=== PATIENT | female | born 1960 | race Caucasian/White ===

== ENCOUNTER 2021-10-08 09:00 | Observation (INO) ==
[2021-10-08 10:03] LABS: Basophils % 0.4 % (0.0-0.8); Eosinophils # 0.1 10*3/uL (0.0-0.87); Eosinophils % 0.7 % (0.00-10.9); Hemoglobin 13.4 GM/DL (12.0-16.0); Immature Granulocytes % 0.3 %; Immature Granulocytes Absolute 0.03 #; Lymphocytes # 1.5 10*3/uL (1.4-4.0); Lymphocytes % 16.6 % (21.3-54.2); Mean Corpuscular HGB Conc 31.9 GM/DL (32-36); Mean Corpuscular Volume 82.7 FL (87-102); Mean Platelet Volume 10.1 FL (9.6-12.0); Monocytes # 0.6 10*3/uL (0.11-0.8); Monocytes % 6.3 % (1.7-12.7); Neutrophils % 75.7 % (38.7-73.9); Platelet Count 284 T/CUMM (130-400); Red Blood Count 5.08 MC/CUMM (3.8-5.5); Red Cell Distribution Width 13.4 % (9.3-17.3)
[2021-10-08 10:13] LABS: PT Patient Result 10.8 SECS (10.5-12.0); Partial Thromboplastin Time 28.6 SECS (23.7-32.9)
[2021-10-08 10:26] LABS: Bilirubin,Total 0.7 MG/DL (0.20-1.00); Calcium 9.3 MG/DL (8.5-10.1); Osmolality,Calculated 292.6 MOS/KG (273-304); Potassium 3.5 MMOL/L (3.5-5.1); Total Protein 7.5 G/DL (6.4-8.2)
[2021-10-08] MEDS ORDERED: hydrALAZINE 20 MG/1 ML VIAL IV STA (10:53)
[2021-10-08] MEDS ORDERED: KETOROLAC 30 MG/1 ML VIAL ONE (12:26)
[2021-10-08] MEDS ORDERED: PROMETHAZINE 25 MG TABLET ONE (12:26)
[2021-10-08] MEDS ORDERED: KETOROLAC 30 MG/1 ML VIAL IV STA (12:28)
[2021-10-08] MEDS ORDERED: PROMETHAZINE 25 MG TABLET PO STA (12:28)
[2021-10-08] MEDS ORDERED: ONDANSETRON 4 MG/2 ML VIAL IV PRN (17:46)
[2021-10-08] MEDS ORDERED: ACETAMINOPHEN 325 MG TABLET PO PRN (17:46)
[2021-10-08] MEDS ORDERED: MORPHINE 2 MG/1 ML SYRINGE IV PRN (17:46)
[2021-10-08] MEDS ORDERED: ZALEPLON 5 MG CAPSULE PO PRN (18:29)
[2021-10-08] MEDS ORDERED: hydrALAZINE 20 MG/1 ML VIAL IV PRN (19:24)
[2021-10-08] MEDS ORDERED: ATORVASTATIN 40 MG TABLET PO SCH (21:00)
[2021-10-08] MEDS: DOCUSATE SODIUM 100 MG CAPSULE PO SCH (21:40)
[2021-10-09 01:21] LABS: Basophils % 0.3 % (0.0-0.8); Eosinophils # 0.1 10*3/uL (0.0-0.87); Eosinophils % 0.9 % (0.00-10.9); Hematocrit 37.4 VOL% (35.7-47.0); Hemoglobin 11.9 GM/DL (12.0-16.0); Immature Granulocytes % 0.3 %; Immature Granulocytes Absolute 0.02 #; Lymphocytes # 2.6 10*3/uL (1.4-4.0); Mean Corpuscular HGB Conc 31.8 GM/DL (32-36); Mean Corpuscular Volume 83.5 FL (87-102); Mean Platelet Volume 10.7 FL (9.6-12.0); Monocytes # 0.9 10*3/uL (0.11-0.8); Neutrophils % 54.5 % (38.7-73.9); Platelet Count 253 T/CUMM (130-400); Red Blood Count 4.48 MC/CUMM (3.8-5.5); Red Cell Distribution Width 13.9 % (9.3-17.3); White Blood Count 7.8 T/CUMM (4-12)
[2021-10-09 01:49] LABS: Albumin 3.4 G/DL (3.4-5.0); Bilirubin,Total 0.4 MG/DL (0.20-1.00); Calcium 8.9 MG/DL (8.5-10.1); Osmolality,Calculated 285.1 MOS/KG (273-304); Potassium 3.4 MMOL/L (3.5-5.1); Risk Ratio 3.16; Thyroid Stimulating Hormone 1.42 uIU/ml (0.358-3.74); Total Protein 6.7 G/DL (6.4-8.2); VLDL Cholesterol 41.2 MG/DL
[2021-10-09] MEDS ORDERED: cloNIDine 0.1 MG TABLET PO ONE (07:45)
[2021-10-09 08:30] VITALS: BP 134/86
[2021-10-09] MEDS ORDERED: MULTIVITAMIN (CENTRUM) TABLET PO SCH (09:00)
[2021-10-09] MEDS ORDERED: BISOPROLOL 5 MG TABLET PO SCH (09:00)
[2021-10-09] MEDS ORDERED: ASPIRIN EC 81 MG TABLET PO SCH (09:00)
[2021-10-09] MEDS ORDERED: PANTOPRAZOLE 40 MG TABLET PO SCH (09:00)
[2021-10-09] MEDS ORDERED: POTASSIUM CHLORIDE 10 MEQ TABLET PO SCH (09:00)
[2021-10-09] MEDS: DOCUSATE SODIUM 100 MG CAPSULE PO SCH (09:18)
== END 2021-10-09 11:05 | disposition home or self-care (01) ==
LOC: N.ED 09:00 → N.EDINP 09:00 → N.TELES 17:40
PROVIDERS: ADMIT Family Medicine; ATTEND Family Medicine